=== PATIENT | female | born 1985 | race American Indian/Alaskan Native ===

== ENCOUNTER 2019-03-28 13:47 | Outpatient (CLI) | payer MEDICARE ==
[2019-03-28 14:43] LABS: Bacteria,Urine 1+ /HPF (Negative); Bilirubin,Urine NEG (Negative); Blood,Urine NEG (Negative); Color,Urine Straw (Yellow); Mucus,Urine FEW /HPF; Protein,Urine <15 mg/dL mg/dL (Negative); Urobilinogen,Urine < 2.0 mg/dL (<2.0)
[2019-03-28 15:06] LABS: Hematocrit 35.4 % (30.3-42.9); Hemoglobin 12.4 gm/dl (10.1-14.3); Mean Corpuscular HGB Conc 35 % (30-34); Mean Corpuscular Volume 84 fl (79-97); Red Blood Count 4.21 M/mm3 (3.65-5.03); Red Cell Distribution Width 15.3 % (13.2-15.2)
[2019-03-28 15:11] LABS: Platelet Count 100 K/mm3 (140-440)
[2019-03-28 15:24] LABS: Alanine Aminotransferase 10 units/L (7-56); Uric Acid 4.4 mg/dL (3.5-7.6)
[2019-03-28 16:22] VITALS: BP 129/72
[2019-03-28] MEDS ORDERED: BUTALB/ACETAMINOPHEN/CAFFEINE TAB PO PRN (16:28)
--- NOTE | 2019-03-28 18:53 | Ultrasound Report ---
US OB limited, US OB BPP wo non-stress INDICATION / CLINICAL INFORMATION: well being. COMPARISON: None available. FINDINGS: Single, viable intrauterine in cephalic presentation. heart rate 138. Amniotic fluid volume is lower limits of normal, with a fluid index of 7.5 cm Biophysical profile breathing movements: 2 movement: 2 posture and tone: 2 Amniotic fluid volume: 2 Total biophysical profile score: 8/8 IMPRESSION: 1. Single, viable intrauterine . 2. Biophysical profile 8/8. Signer Name: Jimmy Ventura MD Signed: 03/28/2019 6:49 PM Workstation Name: [id number]
== END 2019-03-28 16:46 | disposition home or self-care (01) ==
LOC: TRG 13:47
PROVIDERS: ATTEND Obstetrics & Gynecology
DX: O47.1 False labor at or after 37 completed weeks of gestation (principal); Z3A.38 38 weeks gestation of pregnancy
CPT/HCPCS: 36415; 59025; 76815; 76819; 81001; 82565; 83615; 84450; 84460; 84550; 85027; 93005; 93010

== ENCOUNTER 2019-04-01 12:29 | Outpatient (CLI) | payer MEDICARE ==
[2019-04-01 13:23] VITALS: BP 117/66
--- NOTE | 2019-04-01 14:10 | Ultrasound Report ---
ULTRASOUND BIOPHYSICAL PROFILE ULTRASOUND OB LIMITED INDICATION: DENA and BPP. well-being. TECHNIQUE: Transabdominal ultrasound imaging. COMPARISON: 03/28/2019 FINDINGS: breathing movement = 2 Gross body movement = 2 tone = 2 Qualitative amniotic fluid volume = 2 Total biophysical score = 8/8 Amniotic fluid index is 12.3 cm. Presentation is transverse with head to maternal right. heart rate is 140 beats per minute. IMPRESSION: biophysical profile equals 8/8. Signer Name: Joce Ferguson Jr, MD Signed: 04/01/2019 2:05 PM Workstation Name: [id number]
== END 2019-04-01 14:35 | disposition home or self-care (01) ==
LOC: TRG 12:29
PROVIDERS: ATTEND Obstetrics & Gynecology
DX: O47.1 False labor at or after 37 completed weeks of gestation (principal); Z3A.38 38 weeks gestation of pregnancy
CPT/HCPCS: 59025; 76815; 76819

== ENCOUNTER 2019-04-23 10:04 | Outpatient (CLI) | payer MEDICARE ==
[2019-04-23] MEDS ORDERED: LIDOCAINE (4%) 40 MG/ML TOPICAL SOLN 50 ML BOTTLE TP ONE (10:34)
== END 2019-04-23 10:05 | disposition home or self-care (01) ==
LOC: WOUND 10:04
PROVIDERS: ATTEND Surgery
DX: T81.31XA Disruption of external operation (surgical) wound, not elsewhere classified, initial encounter (principal); Y83.8 Other surgical procedures as the cause of abnormal reaction of the patient, or of later complication, without mention of misadventure at the time of the procedure; Y92.89 Other specified places as the place of occurrence of the external cause
CPT/HCPCS: 11042; G0463; 99214

== ENCOUNTER 2019-04-30 10:06 | Outpatient (CLI) | payer MEDICARE ==
[2019-04-30] MEDS ORDERED: LIDOCAINE (4%) 40 MG/ML TOPICAL SOLN 50 ML BOTTLE TP ONE (10:11)
== END 2019-04-30 10:07 | disposition home or self-care (01) ==
LOC: WOUND 10:06
PROVIDERS: ATTEND Surgery
DX: T81.31XD Disruption of external operation (surgical) wound, not elsewhere classified, subsequent encounter (principal); Y83.8 Other surgical procedures as the cause of abnormal reaction of the patient, or of later complication, without mention of misadventure at the time of the procedure

== ENCOUNTER 2019-05-07 10:36 | Outpatient (CLI) | payer MEDICARE ==
[2019-05-07] MEDS ORDERED: LIDOCAINE (4%) 40 MG/ML TOPICAL SOLN 50 ML BOTTLE TP ONE (13:00)
== END 2019-05-07 10:37 | disposition home or self-care (01) ==
LOC: WOUND 10:36
PROVIDERS: ATTEND Surgery
DX: T81.31XD Disruption of external operation (surgical) wound, not elsewhere classified, subsequent encounter (principal); Y83.8 Other surgical procedures as the cause of abnormal reaction of the patient, or of later complication, without mention of misadventure at the time of the procedure

== ENCOUNTER 2019-05-14 10:30 | Outpatient (CLI) | payer MEDICARE ==
[2019-05-14] MEDS ORDERED: LIDOCAINE (4%) 40 MG/ML TOPICAL SOLN 50 ML BOTTLE TP ONE (10:31)
[2019-05-14] MEDS ORDERED: SILVER NITRATE APPLICATOR 1 EA TP ONE (10:39)
== END 2019-05-14 10:31 | disposition home or self-care (01) ==
LOC: WOUND 10:30
PROVIDERS: ATTEND Surgery
DX: O90.0 Disruption of cesarean delivery wound (principal)

== ENCOUNTER 2019-05-21 10:33 | Outpatient (CLI) | payer MEDICARE ==
[2019-05-21] MEDS ORDERED: LIDOCAINE (4%) 40 MG/ML TOPICAL SOLN 50 ML BOTTLE TP ONE (11:00)
== END 2019-05-21 10:34 | disposition home or self-care (01) ==
LOC: WOUND 10:33
PROVIDERS: ATTEND Surgery
DX: T81.31XD Disruption of external operation (surgical) wound, not elsewhere classified, subsequent encounter (principal); Y83.8 Other surgical procedures as the cause of abnormal reaction of the patient, or of later complication, without mention of misadventure at the time of the procedure
CPT/HCPCS: 99213; G0463

== ENCOUNTER 2020-07-26 16:27 | Outpatient (CLI) | payer MEDICARE ==
[2020-07-26 17:10] LABS: Basophils # (Auto) 0.1 K/mm3 (0.0-0.1); Basophils % (Auto) 0.8 % (0.0-1.8); Eosinophils # (Auto) 0.1 K/mm3 (0.0-0.4); Eosinophils % (Auto) 1.9 % (0.0-4.3); Hematocrit 38.5 % (30.3-42.9); Hemoglobin 13.1 gm/dl (10.1-14.3); Lymphocytes # (Auto) 2.8 K/mm3 (1.2-5.4); Lymphocytes % (Auto) 43.5 % (13.4-35.0); Mean Corpuscular HGB Conc 34 % (30-34); Mean Corpuscular Volume 84 fl (79-97); Monocytes # (Auto) 0.6 K/mm3 (0.0-0.8)
[2020-07-26 17:29] LABS: Alanine Aminotransferase 21 units/L (7-56); Albumin 3.8 g/dL (3.9-5); BUN/Creatinine Ratio 13; Blood Urea Nitrogen 10 mg/dL (7-17); Calcium 8.8 mg/dL (8.4-10.2); Chol/HDL Ratio 2.85 %; HDL Cholesterol 54 mg/dL (40-59); Hemolysis Index 7; Iron 49 ug/dL (37-170); LDL Cholesterol,Direct 101 mg/dL (50-130); Total Iron Binding Capacity 234 mcg/dL (250-450)
[2020-07-26 18:28] LABS: Platelet Count 144 K/mm3 (140-440)
== END 2020-07-26 16:28 | disposition home or self-care (01) ==
LOC: LAB 16:27
PROVIDERS: ATTEND Surgery
DX: E11.9 Type 2 diabetes mellitus without complications (principal); E66.01 Morbid (severe) obesity due to excess calories; K30 Functional dyspepsia
CPT/HCPCS: 36415; 80053; 80061; 82306; 82607; 82728; 83036; 83550; 84443; 85025; 85730

== ENCOUNTER → 2020-09-30 | Outpatient (CLI) | payer MEDICARE | END | disposition home or self-care (01) | LOC: SLR 11:00 | PROVIDERS: ATTEND Surgery | DX: G47.33 Obstructive sleep apnea (adult) (pediatric) (principal) | CPT/HCPCS: 95810 ==

== ENCOUNTER → 2020-10-07 | Outpatient (CLI) | payer MEDICARE | END | disposition home or self-care (01) | LOC: SLR 11:00 | PROVIDERS: ATTEND Surgery | DX: G47.33 Obstructive sleep apnea (adult) (pediatric) (principal) | CPT/HCPCS: 95811 ==

== ENCOUNTER 2020-10-15 10:57 | Outpatient (CLI) | payer MEDICARE ==
--- NOTE | 2020-10-15 15:53 | Fluoroscopy Report ---
Esophagram Indication: MORBID OBESITY, preop for bariatric surgery Comparison: None Technique: Single contrast Findings: Resolution was decreased by the patient's size. I see no constricting lesions of the pharyn x. No aspiration was observed. No significant dysmotility was seen. Small sliding-type hiatal hernia was noted with a small Schatzki's ring. No gastroesphageal reflux was noted with water siphon test or Valsalva. A 12 mm barium tablet passed into the stomach without significant delay. Brief additional views of the stomach and duodenum show no obvious ulcers or masses. No obstructive c hanges are seen. Impression: Small sliding-type hiatal hernia Fluoroscopy time: 3.0 minutes, 120 image(s) Signer Name: Khanh Smith MD Signed: 10/15/2020 3:48 PM Workstation Name: [id number]
--- NOTE | 2020-10-15 18:28 | Treadmill Report ---
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 Baseline EKg showes Sinus Rhythm 2. Patient exercise for 6:00 mins. 4. Patientd achieved 92 % Maximal H/R of 171 5.Fair exercise tolerance 6. Good Blood Pressuure response with exercise 7. No arrhythmia 8. No significant EKG change from baseline at peak heart rate. Impression: Fair exercise tolerance. No anginal symptoms. Negative for ischemia on EKG. No arrhythmia with exercise. Low risk study for future cardiovascular events. Electronically Signed On 10-15-2020 18:28:24 EDT by Adonay Larson
--- NOTE | 2020-10-15 18:30 | Electrocardiograph Report ---
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
== END 2020-10-15 10:58 | disposition home or self-care (01) ==
LOC: CARD 10:57
PROVIDERS: ATTEND Surgery
DX: K44.9 Diaphragmatic hernia without obstruction or gangrene (principal); K22.2 Esophageal obstruction
CPT/HCPCS: 74220; 93005; 93017

== ENCOUNTER 2021-01-25 06:55 | Day surgery (SDC) | payer MEDICARE ==
[2021-01-25] MEDS ORDERED: SODIUM CHLORIDE 0.9% 1000 ML 1,000 ML IV SCH (07:00)
--- NOTE | 2021-01-25 07:33 | Anesthesia Day of Surgery ---
Anesthesia Day of Surgery - Day of Surgery Patient Examined: Yes Patient H&P Reviewed: Yes Patient is NPO: Yes
--- NOTE | 2021-01-25 07:33 | Anesthesia Consultation ---
Anesthesia Consult and Med Hx Date of service: 01/25/21 - Airway Anesthetic Teeth Evaluation: Good (some missing teeth), Caps (#8 sharma cap) ROM Head & Neck: Adequate Mental/Hyoid Distance: Adequate Mallampati Class: Class III Intubation Access Assessment: Possibly Difficult - Pre-Operative Health Status ASA Pre-Surgery Classification: ASA3 Proposed Anesthetic Plan: MAC - Pulmonary Hx Asthma: Yes (as child; outgrew it) COPD: No Hx Pneumonia: No Hx Sleep Apnea: Yes (does not use CPAP) - Cardiovascular System Hx Hypertension: No - Central Nervous System Hx Seizures: No Hx Psychiatric Problems: No (anxiety not treated with meds) - Gastrointestinal Hx Gastroesophageal Reflux Disease: Yes - Endocrine Hx Renal Disease: No Hx End Stage Renal Disease: No Hx Hypothyroidism: No Hx Hyperthyroidism: No - Hematic Hx Anemia: No Hx Sickle Cell Disease: No (has trait; father neg) - Other Systems Hx Alcohol Use: Yes (occas social) Hx Obesity: Yes (Morbid obesity, BMI 65.6)
[2021-01-25] MEDS ORDERED: propofoL 200 MG/20 ML VIAL IV ONE (08:24)
--- NOTE | 2021-01-25 08:42 | Discharge Summary ---
Providers - Providers Date of Admission: 01/25/2021 Date of discharge: 01/25/21 Attending physician: SIMONE TOMPKINS MD Primary care physician: [employer] Hospitalization Reason for admission: pre-op egd for bariatric surgery Condition: Good Procedures: egd with bx Hospital course: Pt presented for a pre-op EGD as part of planning for up coming bariatric surgery. Procedure was uneventful and pt recovered well and was discharged to home. Disposition: 01 HOME / SELF CARE / HOMELESS Final Discharge Diagnosis (Prints w/discharge instructions): morbid obesity, gerd Core Measure Documentation - Palliative Care Palliative Care/ Comfort Measures: Not Applicable - Core Measures Any of the following diagnoses?: none Exam - Physical Exam Narrative exam: unchanged from pre-op Plan Activity: advance as tolerated Diet: low carbohydrate Follow up with: PRIMARY CAREMD [Primary Care Provider] - 7 Days
--- NOTE | 2021-01-25 08:43 | Operative Report ---
Operative Report Operative Report: DATE: 01/25/2021 SURGERY: Upper endoscopy. SURGEON: Rito Villa M.D. PROCEDURE: EGD with biopsy PRE OP DX: morbid obesity, GERD POST OP DX: morbid obesity, GERD TYPE OF ANESTHESIA: MAC. ESTIMATED BLOOD LOSS: None. COMPLICATIONS: None. SPECIMENS REMOVED: antral biopsy FINDINGS: 1. Small hiatal hernia. 2. mild antral gastritis INDICATIONS:INDICATION FOR PROCEDURE: Patient is a 35-year-old female with a long history of morbid obesity. She is planned to have a weight loss procedure and is here for preoperative planning EGD. PROCEDURE DETAILS: After consent was reviewed, patient was taken back to the operating room where patient was placed in the left lateral decubitus position and a bite block was placed in the mouth. After a time-out was called, MAC anesthesia was initiated. I then passed the endoscope into her oropharynx, into her esophagus, visualized the entire esophagus, which was all within normal limits. Z-line was noted to about 36cm from incisors. I then visualized the stomach and the first portion of the duodenum and there were no abnormalities I could clearly visualize except for antral gastritis. A cold forceps biopsy of the antrum was taken and will be sent to pathology to evaluate for H.pylori. I then retroflexed the scope in the stomach and visualized the hiatus and I could see a small hiatal hernia. I then desufflated the stomach and removed the endoscope. Patient tolerated procedure well and was transferred to recovery room in good and stable condition.
--- NOTE | 2021-01-25 09:10 | Post Anesthesia Evaluation ---
- Post Anesthesia Evaluation Patient Participated: Yes Airway Patent: Yes Stable Respiratory Function: Yes Nausea/Vomiting: No Temp > 96.8F: Yes Pain Manageable: Yes Adequeate Hydration: Yes Anesthesia Complications: No
[2021-01-25 09:20] VITALS: BP 135/69
== END 2021-01-25 09:39 | disposition home or self-care (01) ==
LOC: GIO 06:55
PROVIDERS: ATTEND Surgery
DX: E66.01 Morbid (severe) obesity due to excess calories (principal); K30 Functional dyspepsia; K21.9 Gastro-esophageal reflux disease without esophagitis; K44.9 Diaphragmatic hernia without obstruction or gangrene; K29.50 Unspecified chronic gastritis without bleeding; K31.89 Other diseases of stomach and duodenum; G47.30 Sleep apnea, unspecified; J45.909 Unspecified asthma, uncomplicated; Z79.899 Other long term (current) drug therapy; Z98.890 Other specified postprocedural states; Z68.44 Body mass index [BMI] 60.0-69.9, adult; Z82.49 Family history of ischemic heart disease and other diseases of the circulatory system; Z83.3 Family history of diabetes mellitus
CPT/HCPCS: 43239; 88305; 88342; J2704; J7030